=== PATIENT | female | born 1980 | race Caucasian/White ===

== ENCOUNTER → 2019-02-21 | Day surgery (SDC) | payer OTHER ==
[~2019-02-21] MED LIST: IV RINGERS,LACTATED 1000ML 1,000 ML IV ONE; LIDOCAINE 2% PF 5 ML VIAL. ONE; PROPOFOL 20 ML IV ONE
[2019-02-21 10:04] VITALS: BP 141/98
--- NOTE | 2019-02-21 20:55 | CONS ---
DATE OF CONSULTATION: 02/21/2019 REFERRING PHYSICIAN: Dr. Camp. REASON FOR CONSULTATION: Colorectal screening with family history of colon cancer. HISTORY OF PRESENT ILLNESS: This is a 38-year-old female whose past medical history is significant for breast lumpectomy, tubal ligation, 6, para 6, seen for screening colon exam. Bowel habits are regular without diarrhea or constipation. There has been no melena or hematochezia. Weight and appetite are stable and she is otherwise without additional complaints. PAST MEDICAL HISTORY: 6, para 6, status post lumpectomy, status post tubal ligation. ALLERGIES: None. MEDICATIONS: None. SOCIAL HISTORY: Nonsmoker, nondrinker. FAMILY HISTORY: Significant for colon cancer with her father who at the age of 50. REVIEW OF SYSTEMS: HEENT: There is no decrease in hearing or visual acuity issues. CARDIAC: No history of hypertension, palpitations, syncope. PULMONARY: No shortness of breath, cough, asthma. RENAL: No dysuria, frequency, hematuria. HEMATOLOGIC: No bleeding, bruising, or coagulopathy. GASTROINTESTINAL: See history of present illness. HEMATOLOGIC: As stated. DERMATOLOGIC: No skin rashes or pruritus. PHYSICAL EXAMINATION: GENERAL: Reveals a well-nourished, well-developed female who is alert, cooperative, in no acute distress. VITAL SIGNS: Temperature 97, pulse 87, respirations 20. HEENT: Normocephalic, atraumatic head. Pupils and extraocular muscles are not tested. Sclerae anicteric. NECK: Supple. LUNGS: Clear. CARDIOVASCULAR: Reveals an S1, S2 without S3, S4 or appreciable murmur. ABDOMEN: Reveals a soft abdomen, normal bowel sounds, without appreciable hepatosplenomegaly. EXTREMITIES: Reveals no cyanosis, clubbing or edema. IMPRESSION: Colorectal screening with family history of colon cancer is recommended at this time. Risks and benefits of procedure including risk of hemorrhage and perforation during the operation have been discussed with the patient is willing to proceed. RISA GREENE MD DR: YARIEL/juantia JOB#: [id number] / [id number]
--- NOTE | 2019-02-24 14:07 | PATHOLOGY ---
[facility] Accession Number: [id number] . 01 Material submitted: . colon - SIGMOID POLYP BIOPSY. Modifiers: sigmoid . 01 Clinical history: . Pre-OP DX: Family HX colon cancer Post-OP DX: Polyps . 02 Diagnosis: Colon biopsies, sigmoid colon polyps: - Hyperplastic polyps (2). (JPM:[facility] 02/24/2019) QTP/02/24/2019 . 02 Comment: There are no adenomatous changes or evidence of malignancy. (JPM:[facility] 02/24/2019) . 02 Electronically signed: . Francesco Conrad MD, Pathologist NPI- [id number] . 01 Gross description: . Received in formalin labeled "Eliza Taylor, sigmoid polyp BX," are 2 segments of connelly soft tissue measuring 0.9 x 0.3 x 0.3 cm in aggregate dimensions and ranging from 0.4 to 0.5 cm in maximum dimension. The specimen is submitted entirely in cassette A1. (TSD; 02/21/2019) TOB/TOB . 02 Pathologist provided ICD-10: K63.5, Z80.0 . 02 CPT . 597173 Specimen Comment: A courtesy copy of this report has been sent to Specimen Comment: [phone], . Specimen Comment: Report sent to / DR BARTLETT Performed at: 01 [facility] [address], [place] [id number] MD Carlos Ervin MD Phone: [phone] Performed at: 02 [facility] [address] [place], [place] [id number] MD Francesco Conrad MD Phone: [phone]
== END ==
LOC: SURG 08:34
PROVIDERS: ATTEND Internal Medicine Gastroenterology
DX: Z12.11 Encounter for screening for malignant neoplasm of colon (principal); K63.5 Polyp of colon; K64.0 First degree hemorrhoids; Z80.0 Family history of malignant neoplasm of digestive organs; Z98.51 Tubal ligation status
CPT/HCPCS: 45380; 88305; J2001; J2704